=== PATIENT | male | born 1965 | race Caucasian/White ===

== ENCOUNTER 2023-04-03 09:57 | Emergency (ER) | payer MEDICAID, OTHER ==
[~2023-04-03] VITALS: Ht 157.5 cm; Wt 50.3 kg
[2023-04-03 11:20] VITALS: BP 97/50; TEMP 98.4; O2SAT 97
== END 2023-04-03 11:30 | disposition home or self-care (01) ==
LOC: ER 10:00
DX: N31.9 Neuromuscular dysfunction of bladder, unspecified (principal); Z59.00 Homelessness unspecified
CPT/HCPCS: 99284; 51702; A6253 ×2